=== PATIENT | female | born 1965 | race Caucasian/White ===

== ENCOUNTER 2023-06-05 11:54 | Day surgery (SDC) | payer BC ==
[2023-05-31 10:33] VITALS: BMI 20.3
--- NOTE | 2023-06-04 13:25 | P.HPOR ---
History of Present Illness H&P Date: 06/04/23 Subjective: This is a 57 year old female that presents today for initial evaluation regarding a 2 year history of progressively worsening right base of the thumb pain as well as a several month history of left middle finger pain with associated locking, catching and clicking. 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 She states her pain is getting to the point where she is almost unable to do her job and currently is on restrictions of 40 hrs per week 5 days a week of work for the right hand. She denies any numbness or tingling. She does have a history of an old fifth metacarpal neck fracture in the same and she will uneventfully. She has tried breu-ayo-teansyc anti-inflammatories and braces with no relief. Physical Examination: LUE: AIN/PIN/Radial/Ulnar/Median motor intact. Radial/Ulnar/Median SILT. 2+/4 Radial/Ulnar pulses palpated. 5/5 APB, 5/5 FDI. Negative Finkelsteins, negative CMC grind, negative Durkan's compression. Left middle finger tenderness at A1 mikaela with associated locking and catching with flexion of the finger. RUE: AIN/PIN/Radial/Ulnar/Median motor intact. Radial/Ulnar/Median SILT. 2+/4 Radial/Ulnar pulses palpated. 5/5 APB, 5/5 FDI. Negative Finkelsteins, positive CMC grind, negative Durkan's compression. Imaging: X-Rays of the left hand three-view taken in the office today demonstrate mild to moderate degenerative changes at the thumb CMC joint X-Rays of the right hand three-view taken in the office today demonstrate severe degenerative changes at the thumb CMC joint Impression: 1.) Right thumb CMC arthritis, severe. 2.) Left middle finger trigger finger Plan: Diagnosis and treatment options were discussed with the patient. In regards to her left middle finger she would like to go forward with a left middle finger steroid injection. Written procedural consent was obtained prior to injection. The palmar skin of the left hand was prepped with an alcohol swab. A 1cc mixture of 1% Lidocaine and Depomedrol was injected into the area of the left middle finger A1 mikaela without complication. Band-Aid was placed and the patient tolerated the procedure well. we discussed treatment options for her severe right thumb CMC arthritis. At this point, anti-inflammatories and bracing are no longer working and she has very severe changes on x-ray with complete joint space narrowing and very large osteophytes surrounding the entire thumb CMC joint. We talked about steroid injection versus thumb CMC arthroplasty and she wishes to proceed with a right thumb CMC basilar joint arthroplasty. Risks and benefits of surgery including bleeding, infection, damage to surrounding tissue, need for further surgery, residual numbness were discussed and the patient wished to go forward with surgery. I anticipate 2.5 months off of work after surgery. This can be extended if needed. The patient was agreeable with this plan. CC: Enrique Machuca MD -Milton Morelos DO Orthopedic Hand/Upper Extremity Surgeon Past Medical History Past Medical History: Osteoarthritis (OA) Additional Past Medical History / Comment(s): Hepatitis C (recent tx), pain right thumb History of Any Multi-Drug Resistant Organisms: None Reported Additional Past Surgical History / Comment(s): colonoscopy, ovary removed. Past Anesthesia/Blood Transfusion Reactions: No Reported Reaction, Motion Sickness Past Psychological History: No Psychological Hx Reported Smoking Status: Current every day smoker Past Alcohol Use History: Rare Additional Past Alcohol Use History / Comment(s): smokes 1/2 ppd, hx of 1 ppd, started as teen. Past Drug Use History: Marijuana Additional Drug Use History / Comment(s): denies current marijuana - Past Family History Mother Family Medical History: No Reported History Medications and Allergies Home Medications Medication Instructions Recorded Confirmed Type Ibuprofen [Motrin Ib] 600 mg PO ONCE 05/31/23 05/31/23 History Allergies Allergy/AdvReac Type Severity Reaction Status Date / Time No Known Allergies Allergy Verified 05/31/23 09:17 Physical Examination Osteopathic Statement: *. No significant issues noted on an osteopathic structural exam other than those noted in the History and Physical/Consult.
[~2023-06-05 11:54] MED LIST: HYDROmorphone 0.5 MG/0.5 ML SYRINGE IVP PRN; LACTATED RINGERS 1,000 ML IV SCH
[2023-06-05] MEDS: DEXAMETHASONE SOD PHOSPHATE 4 MG/ML 1 ML VIAL IV ONE (12:30)
[2023-06-05] MEDS: ONDANSETRON 4 MG/2 ML VIAL IVP ONE (12:30)
[2023-06-05] MEDS: MIDAZOLAM 2 MG/2 ML VIAL IVP ONE (12:37)
[2023-06-05] MEDS: fentaNYL (PF) 50 MCG/ML 2 ML AMP IVP ONE (12:37)
[2023-06-05 12:46] VITALS: TEMP 98.9
[2023-06-05] MEDS: LACTATED RINGERS 1,000 ML IV ONE (12:52)
--- NOTE | 2023-06-05 12:53 | P.ANPRN ---
Procedure Note - Anesthesia - Nerve Block Performed Right Supraclavicular Single Time Out Performed: Yes Date of Procedure: 06/05/23 Procedure Start Time: 12:37 Procedure Stop Time: 12:44 Location of Patient: PreOp Indication: Acute Post-Operative Pain, Requested by Surgeon Sedation Type: Sedate with meaningful contact maintained Preparation: Sterile Prep Position: Supine Needle Types: Pajunk Needle Gauge: 21 Ultrasound used to visualize needle placement: Yes Ultrasound used to observe medication spread: Yes Injectate: 0.5% Ropivacaine (see comment for volume) (25 ml + 4 mg Dexamethasone) Blood Aspirated: No Pain Paresthesia on Injection Noted: No Resistance on Injection: Normal Image Stored and Saved: Yes Events: Uneventful and Well Tolerated
[2023-06-05 13:16] VITALS: RESP 16
[2023-06-05] MEDS ORDERED: DEXAMETHASONE SOD PHOSPHATE 4 MG/ML 1 ML VIAL ONE (13:30)
[2023-06-05] MEDS ORDERED: ROPIVACAINE 5 MG/ML 30 ML VIAL ONE (13:30)
[2023-06-05] MEDS ORDERED: PROPOFOL 10 MG/ML 20 ML VIAL IV ONE (13:30)
[2023-06-05] MEDS: SODIUM CHLORIDE 0.9% 100 ML with ceFAZolin 2,000 MG IV ONE ×2 (13:31)
[2023-06-05 14:48] VITALS: BP 126/76; PULSE 68
--- NOTE | 2023-06-05 21:15 | P.OP ---
Date of Procedure: 06/05/23 Preoperative Diagnosis: Right thumb CMC arthritis Postoperative Diagnosis: Right thumb CMC arthritis Procedure(s) Performed: Right thumb CMC basilar joint arthroplasty Implants: Arthrex Swivel Lock suture anchor x2 ( 3.5mm) Anesthesia: regional Surgeon: Milton Morelos [employer] Order Clerk #1: Delio Cabezas Estimated Blood Loss (ml): 0 Pathology: none sent Condition: stable Disposition: PACU Description of Procedure: This is a 57 year old female who presents today for a right thumb CMC basal joint arthroplasty after having failed conservative treatment for severe thumb CMC arthritis. Risks and benefits of surgery were discussed with the patient including bleeding, damage to surrounding tissue, infection, need for further surgery as well as risks of anesthesia including pulmonary embolism and even and the patient wished to proceed with surgical intervention. The patients was seen in the pre-operative area by myself. Consent and H&P were completed and updated. The correct extremity was marked in the pre-operative area by myself and all other questions were answered. Patient received a upper extremity nerve block by the department of anesthesia. He then was brought to the operating room by the department of anesthesia. They remained on the portable stretcher and a rolling hand table was brought to the side of the operative extremity. The patient was then drifted off to sleep by the department of anesthesia. A nonsterile tourniquet was then applied to the operative extremity and the right upper extremity was then prepped and draped in normal sterile fashion. Pre-operative time out was performed indicating the correct patient, procedure and laterality. All in the room agreed. Pre-operative antibiotics were given prior to skin incision. The operative extremity was the exsanguinated with an esmarch bandage and the tourniquet was inflated to 250mmHg. Longitudinal incision was made over the left thumb CMC joint with a 15 blade scalpel. Blunt dissection was taken down to subcutaneous tissues with littler scissors taking care to preserve the branches of the superficial radial nerve. Dorsal radial artery was identified proximally in the incision and protected throughout the procedure. Scalpel was then made to incise the thumb CMC joint creating full thickness flaps off of the proximal metacarpal base and trapezium, this plane was further developed with a periosteal elevator. Elevator was then utilized to identify the thumb CMC joint and scaphotrapezial joint. McGlamory elevator was then used to excise the trapezium whole. Guidewire was then introduced down to the laser line at the base of the first metacarpal through the same incision and was over drilled. Another guidewire was then inserted at the radial base of the first metacarpal near the Insertion of APL and was then over drilled with normal drill guide. A 3.5mm Arthrex SwiveLock anchor was then inserted into the base of the first metacarpal. While holding the thumb in slight traction and full adduction, another 3.5mm Arthrex SwiveLock anchor was inserted into the base of the second metacarpal and the two strands of fibertape were centered across the first metacarpal base to create a sling around the base suspending the thumb metacarpal, good ritesh purchase was appreciated. The thumb was successfully suspended and full ROM was achieved passively. Suture ends were cut and skin was closed with several interrupted 4-0 Monocryl sutures followed by a running 4-0 Monocryl stitch. Sterile dressing consisting steri strips followed by 4x4s cast padding, and a thumb spica plaster splint was applied. Tourniquet was let down and the hand had brisk cap refill and normal perfusion immediately. The patient was then woken by the department of anesthesia and transferred to PACU in stable condition. Delio PHOENIX was present for the case and assisted in major portions of procedure and protection of vital neurovascular structures. Milton Morelos D.O. Orthopedic Hand/Upper Extremity Surgeon
== END 2023-06-05 15:23 | disposition home or self-care (01) ==
LOC: OR 11:54
PROVIDERS: ATTEND Orthopaedic Surgery Hand Surgery
DX: M18.11 Unilateral primary osteoarthritis of first carpometacarpal joint, right hand (principal); F17.210 Nicotine dependence, cigarettes, uncomplicated; F12.90 Cannabis use, unspecified, uncomplicated; Z90.721 Acquired absence of ovaries, unilateral; Z79.899 Other long term (current) drug therapy
CPT/HCPCS: 64415; 25447; C1713; J2250; J1100; J2405; J0690; J3010; J2795; J2704